=== PATIENT | female | born 1955 | race Caucasian/White ===

== ENCOUNTER 2024-08-20 13:30 | Emergency (ER) | payer SELFPAY ==
[~2024-08-20] VITALS: Ht 157.5 cm; Wt 66.7 kg
[2024-08-20 13:39] VITALS: TEMP 98.4
[2024-08-20 13:56] LABS: BASOPHILS % (AUTO) 0.4 % (0.0-2.0); EOSINOPHILS % (AUTO) 0.3 % (1.0-6.0); HEMATOCRIT 39.9 % (36-46); HEMOGLOBIN 13.2 g/dL (12.0-16.0); LYMPHOCYTES # (AUTO) 2.7 K/uL (1.0-4.8); LYMPHOCYTES % (AUTO) 25.6 % (22.0-44.0); MEAN CORPUSCULAR HEMOGLOBIN 30.7 pg (26.0-34.0); MEAN CORPUSCULAR HGB CONC 33.1 G/dL (31.0-37.0); MEAN CORPUSCULAR VOLUME 93 fL (80-100); MONOCYTES # (AUTO) 0.5 K/uL (0.1-1.0); MONOCYTES % (AUTO) 4.7 % (2.0-9.0); NEUTROPHILS # (AUTO) 7.3 K/uL (1.8-7.7); PLATELET COUNT (AUTO) 235 K/uL (150-450); RED BLOOD CELL COUNT(AUTO) 4.31 MIL/uL (4.00-5.20); RED CELL DISTRIBUTION WIDTH 14.1 % (11.5-14.5); WHITE BLOOD COUNT (AUTO) 10.6 K/uL (4.5-11.0)
[2024-08-20] MEDS ORDERED: SODIUM CHLORIDE 0.9% 100 ML ONE (13:57)
[2024-08-20] MEDS ORDERED: 0.9% SODIUM CHLORIDE 10 ML SYRINGE IVP ONE (13:57)
[2024-08-20] MEDS ORDERED: IOHEXOL 350 MG/ML 100 ML VIAL ONE (13:57)
[2024-08-20 14:06] LABS: ANION GAP 5 mmol/L (8-16); CALCIUM, TOTAL 8.7 mg/dL (8.8-10.5); CARBON DIOXIDE 27 mmol/L (22-29); CHLORIDE 108 mmol/L (98-107); CREATININE 1.06 mg/dL (0.60-1.30); GLOMERULAR FILTR. RATE CALC 51 mL/min (>60); GLUCOSE,RANDOM 106 mg/dL (70-110); POTASSIUM 3.8 mmol/L (3.5-5.1); SODIUM SERUM 140 mmol/L (136-145); UREA NITROGEN, BLOOD 27 mg/dL (7-18)
[2024-08-20 14:15] LABS: ALANINE AMINOTRANSFERASE 17 U/L (12-78); ALBUMIN 3.4 g/dL (3.4-5.0); ALKALINE PHOSPHATASE 112 U/L (46-116); ASPARTATE AMINOTRANSFERASE 20 U/L (15-37); BILIRUBIN,TOTAL 0.7 mg/dL (0.1-1.0); TOTAL PROTEIN, SERUM 7.2 g/dL (6.4-8.2); TROPONIN I-HIGH SENSITIVITY 5 ng/L (<51)
[2024-08-20 14:16] LABS: LACTIC ACID 0.9 mmol/L (0.4-2.0)
[2024-08-20 14:44] LABS: PROTHROMBIN TIME 10.6 SEC (9.4-11.6)
[2024-08-20 14:50] VITALS: BP 138/72; PULSE 79; RESP 15; O2SAT 97
== END 2024-08-20 16:01 | disposition home or self-care (01) ==
LOC: EMS 13:30
DX: R55 Syncope and collapse (principal); R42 Dizziness and giddiness; R41.0 Disorientation, unspecified; I10 Essential (primary) hypertension
CPT/HCPCS: 99285; 70496; 71045; 80053; 83605; 84484; 85025; 85610; 85730; 86850; 86900; 86901; 36415; 70498; 82962; 93005; 70450; Q9967; J7050; 82948